=== PATIENT | female | born 1940 | race Caucasian/White ===

== ENCOUNTER 2017-08-30 08:59 | Outpatient (CLI) | payer MEDICARE ==
--- NOTE | 2017-08-30 11:25 | MMO ---
BILATERAL DIGITAL SCREENING MAMMOGRAMS: Date: 08/30/17 This patient's mammogram was interpreted with the assistance of computer-aided detection. Comparison made with exams of 08/24/16, 08/24/15, and 08/13/14. FINDINGS: There are scattered fibroglandular densities with benign-appearing calcifications. No suspicious mas ses, calcifications, or architectural distortion are seen. IMPRESSION: BIRADS 2: Benign Finding(s) Annual mammographic screening is recommended. POS: [facility]
== END 2017-08-30 09:00 | disposition home or self-care (01) ==
LOC: MAMMO 08:59
PROVIDERS: ATTEND Obstetrics & Gynecology
DX: Z12.31 Encounter for screening mammogram for malignant neoplasm of breast (principal)
CPT/HCPCS: 77067; G0202

== ENCOUNTER 2018-09-11 12:47 | Outpatient (CLI) | payer MEDICARE ==
--- NOTE | 2018-09-11 15:43 | MMO ---
BILATERAL SCREENING MAMMOGRAMS: Date: 09-11-18 This study is interpreted with the assistance of computer aided detection. Comparison: 08-30,17, 16, 08-24-15, 08-23-14 FINDINGS: Scattered fibroglandular densities are seen in each breast. There are benign appearing calcifications again seen at each breast. No dominant mass or suspicious grouping of microcalcifications are seen i n either breast. IMPRESSION: BIRADS category 2 - benign findings. Routine mammographic screening is recommended. POS: [facility]
== END 2018-09-11 12:48 | disposition home or self-care (01) ==
LOC: SCSMAMMO 12:47
PROVIDERS: ATTEND Obstetrics & Gynecology
DX: Z12.31 Encounter for screening mammogram for malignant neoplasm of breast (principal)
CPT/HCPCS: 77067